=== PATIENT | male | born 1960 | race Caucasian/White ===

== ENCOUNTER → 2017-01-18 | Outpatient (CLI) | payer OTHER | LOC: US 10:47 | DX: N28.9 Disorder of kidney and ureter, unspecified (principal) ==

== ENCOUNTER → 2017-02-04 | Outpatient (CLI) | payer OTHER | LOC: CT 07:58 | DX: R93.429 Abnormal radiologic findings on diagnostic imaging of unspecified kidney (principal); K59.00 Constipation, unspecified; N28.89 Other specified disorders of kidney and ureter ==

== ENCOUNTER 2021-06-02 13:46 | Inpatient (IN) | payer MEDICARE, OTHER ==
[~2021-06-02] VITALS: Ht 177.8 cm; Wt 73.9 kg
[~2021-06-02 13:46] MED LIST: CLARITIN10 MG PO; DESYREL 50 MG T50 MG PO; FLEXERIL 10 MG10 MG PO; FLONASE 0.05% N16 GM; HYDRALAZINE HCL10 MG PO; INCRUSE ELLI62.5 MCG INH; LIPITOR TAB 1010 MG PO; NORVASC10 MG PO; PROAIR DIGIHAL90 MCG INH
[2021-06-02 14:26] LABS: HEMOGLOBIN 14.2 gm/dl (14.0-17.5); RED BLOOD COUNT 5.09 M/UL (4.20-5.50); WHITE BLOOD COUNT 5.6 K/UL (4.5-11.0)
[2021-06-02 14:57] LABS: BUN/CREATININE RATIO 20 (0-10)
[2021-06-02] MEDS ORDERED: ANORO ELLIPTA1 EACH INH (16:40)
[2021-06-02] MEDS ORDERED: DRISDOL1250 MCG PO (16:42)
[2021-06-03 09:06] LABS: HEMOGLOBIN 12.3 gm/dl (14.0-17.5); WHITE BLOOD COUNT 4.4 K/UL (4.5-11.0)
[2021-06-03 09:08] LABS: RED BLOOD COUNT 4.38 M/UL (4.20-5.50)
[2021-06-05 02:40] LABS: HEMOGLOBIN 12.9 gm/dl (14.0-17.5); RED BLOOD COUNT 4.66 M/UL (4.20-5.50)
[2021-06-05 02:42] LABS: WHITE BLOOD COUNT 9.7 K/UL (4.5-11.0)
[2021-06-05 03:01] LABS: BUN/CREATININE RATIO 23 (0-10)
--- NOTE | 2021-06-05 13:22 | NUR ---
ROOM AIR O2 SAT IS 88%.
[2021-06-05] MEDS ORDERED: LEVOFLOXACIN750 MG PO (13:52)
[2021-06-05] MEDS ORDERED: DECADRON6 MG PO (13:52)
== END 2021-06-05 15:31 | disposition home or self-care (01) | DRG 177 ==
LOC: ER1 13:46 → PROG CARE 14:57 → CDU 14:57 → PROG CARE 06-03 01:49
PROVIDERS: Emergency Medicine; ADMIT Internal Medicine
PROC: 3E0333Z Introduction of Anti-inflammatory into Peripheral Vein, Percutaneous Approach (ICD-10-PCS; principal; 2021-06-02)
PROC: XW033E5 Introduction of Remdesivir Anti-infective into Peripheral Vein, Percutaneous Approach, New Technology Group 5 (ICD-10-PCS; 2021-06-03)
PROC: 8E0ZXY6 Isolation (ICD-10-PCS; 2021-06-03)
DX: U07.1 COVID-19 (principal); J96.01 Acute respiratory failure with hypoxia; J12.82 Pneumonia due to coronavirus disease 2019; N17.9 Acute kidney failure, unspecified; J44.9 Chronic obstructive pulmonary disease, unspecified; I10 Essential (primary) hypertension; Z99.81 Dependence on supplemental oxygen; Z87.891 Personal history of nicotine dependence
CPT/HCPCS: 36415; 36600; 71045; 80048; 80053; 82550; 82553; 82728; 82803; 82962; 83605; 83615; 83735; 83874; 83880; 84484; 85025; 85379; 86140; 87040; 93005; 94640; 94664; 94760; 99285; J1100; J1650; J1956; J2405; J7030; U0002

== ENCOUNTER → 2021-11-29 | Outpatient (CLI) | payer OTHER, MEDICARE ==
[~2021-11-29] MED LIST changes: +ANORO ELLIPTA1 EACH INH; +DECADRON6 MG PO; +DRISDOL1250 MCG PO; +LEVOFLOXACIN750 MG PO
== END ==
LOC: EXRD 15:08
DX: R05.9 Cough, unspecified (principal); R06.02 Shortness of breath; J43.9 Emphysema, unspecified; R91.8 Other nonspecific abnormal finding of lung field
CPT/HCPCS: 71046

== ENCOUNTER → 2022-01-08 | Outpatient (CLI) | payer MEDICARE, OTHER | LOC: HEART 5 13:24 | DX: J44.9 Chronic obstructive pulmonary disease, unspecified (principal) | CPT/HCPCS: 94060; 94729 ==

== ENCOUNTER → 2022-03-06 | Outpatient (CLI) | payer MEDICARE, OTHER | LOC: MRI 12:22 | DX: H93.13 Tinnitus, bilateral (principal) | CPT/HCPCS: 36415; 70553; 82565; 84520; A9577 ==

== ENCOUNTER → 2022-04-04 | Day surgery (SDC) | payer MEDICARE, OTHER | END | disposition home or self-care (01) | LOC: OR 06:30 | DX: Z12.11 Encounter for screening for malignant neoplasm of colon (principal); D12.4 Benign neoplasm of descending colon; D12.3 Benign neoplasm of transverse colon; K64.1 Second degree hemorrhoids; K64.4 Residual hemorrhoidal skin tags; I10 Essential (primary) hypertension; J44.9 Chronic obstructive pulmonary disease, unspecified; E66.3 Overweight; Z68.25 Body mass index [BMI] 25.0-25.9, adult; Z80.0 Family history of malignant neoplasm of digestive organs; Z79.899 Other long term (current) drug therapy | CPT/HCPCS: J2704; J7040 ==

== ENCOUNTER → 2022-06-12 | Outpatient (CLI) | payer MEDICARE, OTHER | LOC: KOH-I 13:19 | DX: Z87.891 Personal history of nicotine dependence (principal); R91.8 Other nonspecific abnormal finding of lung field | CPT/HCPCS: 71271 ==